=== PATIENT | male | born 1945 | race Caucasian/White ===

== ENCOUNTER 2022-11-19 08:55 | Outpatient (CLI) | payer MEDICARE, SELFPAY ==
--- NOTE | ~2022-11-19 | PE_ITS ---
EXAMINATION: PET skull to mid thigh DATE: 11/19/2022 11:04 INDICATION: Pulmonary nodule, history of prostate cancer TECHNIQUE: Blood glucose level was 81 mg/dL. 8.834 mCi of 18-fluorodeoxyglucose (18-FDG) was administ ered i.v. Low dose computed tomography (CT) images were acquired from the base of the brain to the pr oximal thighs for attenuation correction and anatomic localization. Positron emission tomography (PET ) images were acquired in the same distribution beginning 57 minutes after injection. The dose-length product (DLP) was 506.46 mGy-cm. COMPARISON: 05/13/2018 FINDINGS: Head/neck: FDG uptake in the oral cavity and orbits without suspicious CT correlate is likely physiol ogic. There is mild mucosal thickening of the maxillary sinuses. There is symmetric uptake in the thy roid gland. Chest: There is an approximately 10.3 x 6.2 cm thick-walled fluid collection at the posterolateral as pect of the right thoracic cavity. The thick-walled rim demonstrates mild FDG uptake. There is a smal l focus of gas in the fluid component. There are peripheral airspace opacities in the left lower lobe with mild FDG uptake. The heart size is normal. There are pericardial calcifications. There is mild right paratracheal lymphadenopathy without significant FDG uptake, likely reactive. Bilateral gynecom astia is noted. Abdomen/pelvis/proximal thighs: Physiologic FDG activity is present in the bowel and urinary tract. N o abnormal FDG uptake is identified. There is nodularity of the liver surface, consistent with cirrho sis. Stones are present in the nondistended gallbladder. The spleen, pancreas, and adrenal glands are normal. The kidneys are unremarkable. There is calcified atherosclerosis of the aorta and many of th e other arteries. No pathologically enlarged abdominal or pelvic lymph nodes are identified. No free intraperitoneal gas or evidence of bowel obstruction. Surgical clips are present in the prostate. Col onic diverticulosis is present without evidence of diverticulitis. Musculoskeletal: No abnormal FDG uptake is identified. There is an intramuscular lipoma of the left i nfraspinatus muscle. There is moderate to severe cervical and lumbar spondylosis and mild thoracic sp ondylosis. IMPRESSION: 1. Thick-walled fluid collection of the right thorax with mild peripheral FDG uptake and a focus of i nternal gas. Finding could reflect complex pleural effusion versus empyema. 2. Cirrhosis. 3. Left lung opacities with mild FDG uptake, likely pneumonia. Follow-up CT in three months is recomm ended. 4. Symmetric FDG uptake in the thyroid gland. Consider follow-up thyroid ultrasound. 5. Calcific pericarditis. Reviewed, dictated and finalized at location B. IMPRESSION: 1. Thick-walled fluid collection of the right thorax with mild peripheral FDG u ptake and a focus of internal gas. Finding could reflect complex pleural effusi on versus empyema. 2. Cirrhosis. 3. Left lung opacities with mild FDG uptake, likely pneumonia. Follow-up CT in three months is recommended. 4. Symmetric FDG uptake in the thyroid gland. Consider follow-up thyroid ultras ound. 5. Calcific pericarditis.
[2022-11-19 09:26] LABS: Glucose Point of Care 81 mg/dl (65-105)
== END 2022-11-19 08:56 | disposition home or self-care (01) ==
PROVIDERS: PCP Family Medicine
DX: R91.1 Solitary pulmonary nodule (principal); K74.60 Unspecified cirrhosis of liver; R91.8 Other nonspecific abnormal finding of lung field; I31.9 Disease of pericardium, unspecified
CPT/HCPCS: 78815; A9552

== ENCOUNTER 2024-08-07 08:43 | Emergency (ER) | payer MEDICARE, SELFPAY ==
[2024-08-07] VITALS (19 sets, daily range): BP systolic 93–184; BP diastolic 42–90; PULSE 114–142; RESP 12–50; TEMP 36.6–36.7; O2SAT 87–100
--- NOTE | ~2024-08-07 | CT_ITS ---
Non-contrast Head CT History: Unresponsive, hypotensive Technique: Axial non-contrast imaging of the brain was performed. Dose reduction technique was used on this scan by utilizing automated exposure control and iterative reconstruction technique. The dose -length product (DLP) was 605.33 mGy-cm. Findings: There is no evidence of intracranial hemorrhage, mass lesion, or acute infarct. Brain par enchyma appears normal. The ventricles and subarachnoid spaces are normal in size. The calvarium ap pears normal. The visualized paranasal sinuses and mastoid air cells are clear. Impression: No significant abnormality seen. Reviewed, dictated and finalized at location . Impression: No significant abnormality seen.
--- NOTE | ~2024-08-07 | XR_ITS ---
EXAMINATION: XR chest 1V portable DATE: 08/07/2024 09:37 INDICATION: Unresponsive. Hypoxia. Hypotensive. TECHNIQUE: frontal view of the chest was obtained. COMPARISON: PET/CT dated 11/19/2022 FINDINGS: Airspace opacities in the bilateral lower lung zones with pleural effusions and/or chronic pleural th ickening along the lateral aspects of the bilateral mid and lower lung zones. No pneumothorax. Perica rdial calcifications at the periphery of the normal sized heart. IMPRESSION: 1. Opacities in the bilateral mid and lower lungs likely due at least in part to chronic pleural thic kening/scarring as seen on the prior PET/CT although differential would include small bilateral pleur al effusions, atelectasis, pneumonia or some combination thereof. 2. Chronic calcific pericarditis. Reviewed, dictated and finalized at location A. IMPRESSION: 1. Opacities in the bilateral mid and lower lungs likely due at least in part t o chronic pleural thickening/scarring as seen on the prior PET/CT although diff erential would include small bilateral pleural effusions, atelectasis, pneumoni a or some combination thereof. 2. Chronic calcific pericarditis.
--- NOTE | ~2024-08-07 | XR_ITS ---
XR chest ET placement Ordering provider: Maia Costa MD History: 78 years Male with . post intubation . Comparison: August 07, 2024 FINDINGS: MEDIASTINUM: The cardiac silhouette is slightly enlarged. Endotracheal tube is seen with the tip abov e the velia by about 3 cm. Congestive marysol. LUNGS: No pneumothorax. Opacification in the left lung base is seen. Right pleural effusion is noted. Possible pleural calcification in the area of the left hemidiaphragm. Bilateral interstitial thicken ing. OTHER: No free air under the diaphragm. IMPRESSION: Cardiomegaly with cardiac decompensation and pulmonary edema. Left basilar atelectasis versus pneumonia. Right moderate pleural effusion. Reviewed, dictated and finalized at location A.
--- NOTE | 2024-08-07 08:48 | ED_ITS ---
HPI - General Adult General Chief complaint: Altered Mental Status Stated complaint: Ambulance Time Seen by Provider: 08/07/24 08:47 Source: family and EMS Mode of arrival: EMS History of Present Illness HPI narrative: patient is 78 years old white male came to the ED from home by ambulance because of unresponsiveness since last night about 10:00 p.m.. History of diabetes, hypertension, hyperlipidemia, congestive heart failure, atrial fibrillation, pleural effusion bilaterally,, recurrent aspiration pneumonia, history of trouble swallowing, walking, patient is not on anti- platelet or anticoagulant medication, His 's telling me that patient had a fall 2 weeks ago complaining of left hip pain, not sure if the patient had head injury at that time or not, did not go to the hospital. Been using a walker over the last 4 days. Patient was seen by his high tension tester 1 week ago for the pleural effusion. Related Data Allergies Allergy/AdvReac Type Severity Reaction Status Date / Time apixaban (From Eliquis) Allergy Severe Unknown Verified 08/07/24 10:00 meloxicam Allergy Unknown Unknown Verified 08/07/24 10:00 metoclopramide (From Reglan) Allergy Unknown Unknown Verified 08/07/24 10:00 simvastatin (From Zocor) Allergy Unknown Unknown Verified 08/07/24 10:00 Review of Systems 2 Review of Systems: ROS unobtainable: Yes unobtainable due to medical condition and unobtainable due to mental status Exam 2 Narrative: General appearance: Well-developed, well-nourished, unresponsive to painful stimulation, cyanotic face, 100% non-rebreather Skin: bluish discoloration of the face, cold skin, pale Head: Normocephalic, nontraumatic Eyes: Clear conjunctiva pupils narrow bilaterally ENT: Oropharynx normal, ears normal, nose normal Neck: Supple, nontender Chest and respiratory: Airway patent, slight labored breathing no accessory muscle use Heart: tachycardia, irregular Abdomen: Soft, nontender, no organomegaly, quiet bowel sounds Vascular: Normal peripheral pulses, normal capillary refill. Musculoskeletal: and responsive to painful stimulation Neurologic: unresponsive to painful stimulation Course Consultations Consultation #1: dr porter ICU at [facility] who accepted patient transfer Date: 08/07/24 Time: 11:40 Vital Signs Vital signs: Vital Signs Temperature 36.6 C 08/07/24 08:43 Pulse Rate 134 H 08/07/24 08:43 Respiratory Rate 30 H 08/07/24 08:43 Blood Pressure 99/67 L 08/07/24 08:43 Pulse Oximetry 96 08/07/24 08:43 Oxygen Delivery Non-Rebreather Mask 08/07/24 08:43 Oxygen Flow Rate 15 08/07/24 08:43 Temperature 36.6 C 08/07/24 08:43 Pulse Rate 133 H 08/07/24 09:02 Respiratory Rate 50 H 08/07/24 09:02 Blood Pressure 99/42 L 08/07/24 09:02 Pulse Oximetry 92 08/07/24 09:02 Oxygen Delivery Mechanical Ventilation 08/07/24 10:00 Oxygen Flow Rate 15 08/07/24 09:02 Procedures Intubation Intubation #1: Intubation Date: 08/07/24 Time out performed: Yes (10) sedative: Versed Mg Given: 4 paralytic: Succinylcholine Mg Given: 100 Laryngoscope: fiber optic video scope Assist Device Used: fiber optic device Tube Size (cm): 7.5 Method of Intubation: orotracheal Number of Attempts: 1 Tube Secured Depth (cm): 25 Tube Secured Location: lips Tube Placement Confirmation: visualized tube passing through cords Patient Tolerated Procedure: well Intubation Complications: none Medical Decision Making MDM Narrative Medical decision making narrative: Patient came to the ED and responsive since last night Vital signs on arrival showing blood pressure 99/67, pulse 134 atrial fibrillation with RVR, saturation 96% on 15 L non-rebreather. Physical examination showing a patient, unresponsive to painful stimulation, normal pupils bilaterally bluish discoloration of the face on 15 L non- rebreather with saturation 97% Differential diagnosis include intracranial bleed, CVA, sepsis, metabolic encephalopathy, dehydration, electrolyte imbalance, acute coronary syndrome Blood workup today includes septic protocol, showed ABG on 15 L showed EKG on arrival showed AFib with RVR at 120 beats per minute, right bundle branch block Diagnosis: Acute respiratory failure with hypoxia and hypercapnia Carbon dioxide narcosis AFib with RVR Her renal failure, acute versus chronic Elevated troponin, could be some demand ischemia Elevated liver enzymes Atelectasis versus pneumonia Transferred to [facility] discussed with the ICU DR PORTER Differential Diagnosis Differential Diagnosis: ABOVE Vital Signs Vital Signs: Vital Signs Temperature 36.6 C 08/07/24 08:43 Pulse Rate 134 H 08/07/24 08:43 Respiratory Rate 30 H 08/07/24 08:43 Blood Pressure 99/67 L 08/07/24 08:43 Pulse Oximetry 96 08/07/24 08:43 Oxygen Delivery Non-Rebreather Mask 08/07/24 08:43 Oxygen Flow Rate 15 08/07/24 08:43 Temperature 36.6 C 08/07/24 08:43 Pulse Rate 133 H 08/07/24 09:02 Respiratory Rate 50 H 08/07/24 09:02 Blood Pressure 99/42 L 08/07/24 09:02 Pulse Oximetry 92 08/07/24 09:02 Oxygen Delivery Mechanical Ventilation 08/07/24 10:00 Oxygen Flow Rate 15 08/07/24 09:02 Lab Data 08/07/24 09:20 08/07/24 09:20 Labs: Lab Results 08/07/24 08/07/24 08/07/24 Range/Units 08:53 09:20 09:21 WBC 11.7 H (4.8-10.8) K/mm3 RBC 3.93 L (4.70-6.10) M/mm3 Hgb 9.5 L (12.4-15.3) g/dL Hct 36.2 L (37.0-46.0) % MCV 92.1 (78.0-102.0) fL MCH 24.2 L (27.0-31.0) pg MCHC 26.2 L (32-36) g/dL RDW 16.7 H (11.6-14.4) % Plt Count 391 (150-420) K/mm3 MPV 9.9 (8.7-11.0) fl Immature Gran % (Auto) 0.9 H (0.0-0.0) % Neut % (Auto) 75.8 H (50.0-70.0) % Lymph % (Auto) 9.2 L (18.0-42.0) % Logan % (Auto) 11.9 H (2.0-11.0) % Eos % (Auto) 1.4 (1.0-6.0) % Baso % (Auto) 0.8 (0.0-1.0) % Lymph # (Auto) 1.08 L (1.10-4.50) K/mm3 Logan # (Auto) 1.39 H (0.10-0.90) K/mm3 Eos # (Auto) 0.16 (0.02-0.50) K/mm3 Baso # (Auto) 0.09 (0.00-0.10) K/mm3 Abs Immat Gran (auto) 0.11 H (0.00-0.00) K/mm3 Absolute Neuts (auto) 8.88 H (1.70-7.20) K/mm3 Absolute Nucleated RBC 0.02 H (0.00-0.00) K/mm3 Nucleated RBC % 0.2 H (0-0.0) % PT 13.0 H (9.50-12.1) Seconds INR 1.2 APTT 32.2 H (23.9-30.70) Sec Sodium 143 (136-145) mmol/L Potassium 5.3 H (3.5-5.1) mmol/L Chloride 104 (98-108) mmol/L Carbon Dioxide 36 H (21-32) mmol/L Anion Gap 3 L (4-12) mmol/L BUN 33 H (7-18) mg/dL Creatinine 2.51 H (0.70-1.30) mg/dL Estim Creat Clear Calc Not Reportable Estimated GFR 25 L (59 - ) Glucose 63 L (70-99) mg/dL Calculated Osmolality 301 H (285-295) mOsm/kg Lactic Acid 1.8 (0.4-2.0) mmol/L Calcium 8.6 (8.5-10.1) mg/dL Total Bilirubin 0.7 (0.00-1.00) mg/dL AST 128 H (15-37) U/L ALT 88 H (16-63) U/L Alkaline Phosphatase 222 H (46-116) U/L Troponin I 106.4 H* (0.00-60.4) ng/L C-Reactive Protein 4.0 H (0.0-0.9) mg/dL Total Protein 9.5 H (6.4-8.2) g/dL Albumin 3.5 (3.4-5.0) g/dL Urine Color Yellow (Yellow) Urine Appearance Clear (Clear) Urine pH 5.5 (5.0-8.0) Ur Specific [place] 1.025 H (1.010-1.020) Urine Protein Negative (Negative) Urine Glucose (UA) Negative (Negative) Urine Ketones Negative (Negative) Ur Blood (Man) Trace-intact H (Negative) Urine Nitrate Negative (Negative) Urine Bilirubin Negative (Negative) Urine Urobilinogen 0.2 (0.2-1.0) mg/dL Leukocyte Esterase Rfl Negative (Negative) BLAKE/UL Urine Opiates Screen Negative (Negative) Urine Methadone Screen Negative (Negative) Ur Barbiturates Screen Negative (Negative) Ur Phencyclidine Scrn Negative (Negative) Ur Amphetamine Screen Negative (Negative) U Benzodiazepines Scrn Negative (Negative) Urine Cocaine Screen Negative (Negative) U Cannabinoids Screen Negative (Negative) Ethyl Alcohol < 3 (0-6) mg/dL ABG Data ABG results: 08/07/24 09:40 Puncture Site Left radial ABG pH 6.91 L* ABG pCO2 196.0 H* ABG pO2 289.7 H ABG HCO3 38.4 H ABG O2 Saturation 99.5 H ABG Base Excess 1.8 Oxyhemoglobin 98.2 O2 Delivery Device Non-rebreather mask O2 Liters/Min 15.0 ECG Data EKG #1: Attestation: I personally reviewed and interpreted this ECG as follows: ECG completion date: 08/07/24 Interpretation: atrial fibrillation with RVR at 121 beats per minute, right bundle branch block, lateral myocardial infarction of indeterminate age, abnormal EKG Critical Care Time Critical Care Time Critical Care Time: Yes Total Critical Care Time: 30 Discharge Plan Discharge Clinical Impression: Unresponsive state, Renal insufficiency, Elevated liver enzymes, Elevated troponin, Acute respiratory failure with hypoxia and hypercapnia, CO2 narcosis Patient Disposition: Acute Care Hospital Condition: Guarded Prognosis Additional Instructions: TRANSFERRED TO [facility] Patient Language: Iranian Follow-up/Referrals: Ramone Degroot M.D. [Primary Care Provider] -
--- NOTE | 2024-08-07 08:48 | ECG_ITS ---
Test Date: 2024-08-07 08:54:53 Measurements Intervals [place] Rate: 121 P: 0 MI: 0 QRS: 122 QRSD: 161 T: -26 QT: 328 QTc: 467 Interpretive Statements ATRIAL FIBRILLATION WITH RAPID VENTRICULAR RESPONSE RIGHT BUNDLE BRANCH BLOCK [120+ ms QRS DURATION, UPRIGHT V1, 40+ ms S IN I/aVL/V4/V5/V6] LEFT POSTERIOR FASCICULAR BLOCK [QRS AXIS > 109, INFERIOR Q] LATERAL MYOCARDIAL INFARCTION , OF INDETERMINATE AGE [40+ ms Q WAVE AND/OR ST/T ABNORMALITY IN I/aVL/V5/V6] ST DEPRESSION, CONSIDER SUBENDOCARDIAL INJURY [0.1+ mV ST DEPRESSION] No previous ECG available for comparison Electronically Signed On 08-08-2024 16:21:18 CDT by Evans Christopher M.D.
[2024-08-07] MEDS: SODIUM CHLORIDE 0.9% IV 1,000 ML 999 ML IV CONT ×2 (08:50→09:00)
--- OUTSIDE RECORDS SUMMARY | 2024-08-07 09:08 | XMS_ITS | Encounter Summary ---
Author Organization [facility] Healthcare Address [address] [place] [address] Care Team Providers Care Metal Crafts Teacher Name Role Phone Ramone Degroot MD Primary Care Provider [phone] Lelia Velasquez RN Unavailable Un available Encounter Details Date Type Department Care Team (Late st Contact Info) Description 12/27/2019 Telephone [facility] [address] [facility] 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 Author <enter goal here> General Improving( 12:11 PM CDT) Yes Lelia Velasquez, RN Note: Walking for long periods of time Lifting cases in my store Being able to sleep with no foot pain documented as of this encounter Visit Diagnoses Not on filedocumented in this encounter Care Teams Metal Crafts Teacher Relationship Specialty Start Date End Date Ramone Degroot MD [address] [place] [address] PCP - General 09/22/17 Lelia Velasquez, RN Registered Nurse 09/22/17 documented as of this encounter
--- OUTSIDE RECORDS SUMMARY | 2024-08-07 09:08 | XMS_ITS | Encounter Summary ---
Author Organization [facility] Address [address] [place] [address] Care Team Providers Care County Coroner Name Role Phone Ramone Degroot MD Primary Care Provider Tejinder Cabrera MD Unavailable Unavail able Alon Holland MD Unavailable [phone] Alon De Leon MD Unavailable [phone] Jennifer Don NP Unavailable Unavailable Encounter Details Date Type Department Care Team (Late st Contact Info) Description 08/28/2021 Hospital Follow-up Call [facility] [address] [place] [address] Fanny Healy RN Social History Tobacco Use Types Packs/Day Years Used Date Smoking Tobacco: Former Cigarettes Q uit: 09/2018 Smokeless Tobacco: Never Alcohol Use Standard Drinks/Week Comments Not Currently 0 (1 standard drink = 0.6 oz pur e alcohol) Sex and Gender Information Value Date Recorded Sex Assigned at Male 06/22/2024 2:18 PM FULLERETTE Legal Sex Male 10:43 PM CDT Gender Identity Male 08/15/2021 1:58 PM CDT Sexual Orientation Not on file 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 No / Unsure 08/18/2021 2:04 PM CDT documented as of this encounter Functional Status * RETIRED Are you deaf or do you have serious difficulty hearing Answer Date of Assessment Author Status No 08/18/2021 6:45 PM CDT Activ e * RETIRED Are you blind or do you have serious difficulty seeing, even when wearing glasses? Answer Date of Assessment Author Status No 08/18/2021 6:45 PM CDT Activ e * Do you have serious difficulty walking or climbing stairs? Answer Date of Assessment Author Status No 08/18/2021 6:45 PM CDT Kevin Alicia RN Active * Do you have difficulty dressing or bathing? Answer Date of Assessment Author Status No 08/18/2021 6:45 PM CDT Kevin Alicia RN Active * Because of a physical, mental, or emotional condition, do you have difficulty doing errands alone such as visiting a doctor's office or shopping? Answer Date of Assessment Author Status No 08/18/2021 6:45 PM CDT Kevin Alicia RN Active documented as of this encounter Mental Status * Because of a physical, mental, or emotional condition, do you have serious difficulty concentrating, remembering, or making decisions? Answer Entry Date Author Status No 08/18/2021 6:45 PM SANDEET Kevin Alicia RN Active documented in this encounter Plan of Treatment Not on file documented as of this encounter Goals Goal Patient Goal Type Associated Problems Recent Progress Patient-Stated? Author Patient will return to prior living situation and remain independent in ADLs upon discharge from hospital General Marcelina Bahena RN documented as of this encounter Visit Diagnoses Not on filedocumented in this encounter Additional Health Concerns Infection Onset Date Last Indicated Resolved Time COVID-19 Rule Out 11/03/2021 11/03/2021 11/03/2021 5:18 PM CDT documented as of this encounter Care Teams County Coroner Relationship Specialty Start Date End Date [place] [address] [address] PCP - General FAMILY PRACTICE 06/30/18 [place] [address] [address] CARDIOVASCULAR DISEASE 06/30/18 10/19/23 Alon Holland MD [address] [place] [address] Neurology Psychiatry 07/07/18 10/19/23 Alon De Leon MD [address] [place], [place] [address] Covering Provider CARDIOTHORACIC SURGERY 08/18/21 Jennifer Don NP [address] [place] [address] Referring Physician Nurse Practitioner Family 11/28/21 documented as of this encounter
--- OUTSIDE RECORDS SUMMARY | 2024-08-07 09:08 | XMS_ITS | Encounter Summary ---
Author Organization [facility] Address [address] [place] [address] Care Team Providers Care Fruit Buying Grader Name Role Phone Ramone Degroot MD Primary Care Provider Tejinder Cabrera MD Unavailable Unavail able Alon Holland MD Unavailable [phone] Alon De Leon MD Unavailable [phone] Jennifer Don NP Unavailable Unavailable Encounter Details Date Type Department Care Team (Late st Contact Info) Description 09/17/2021 Pre-Procedure Call [facility] Pre/Post [address] [place] [address] Edy Suresh MD [address] [place] [address] Social History Tobacco Use Types Packs/Day Years Used Date Smoking Tobacco: Former Cigarettes Q uit: 09/2018 Smokeless Tobacco: Never Alcohol Use Standard Drinks/Week Comments Not Currently 0 (1 standard drink = 0.6 oz pur e alcohol) Sex and Gender Information Value Date Recorded Sex Assigned at Male 06/22/2024 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 Author Patient will return to prior living situation and remain independent in ADLs upon discharge from hospital General No Marcelina Davies RN documented as of this encounter Visit Diagnoses Not on filedocumented in this encounter Additional Health Concerns Infection Onset Date Last Indicated Resolved Time COVID-19 Rule Out 11/03/2021 11/03/2021 11/03/2021 5:18 PM CDT documented as of this encounter Care Teams Fruit Buying Grader Relationship Specialty Start Date End Date Ramone Degroot MD [address] [place] [place] [address] PCP - General FAMILY PRACTICE 06/30/18 Tejinder Cabrera MD [address] [place] [address] CARDIOVASCULAR DISEASE 06/30/18 10/19/23 Alon Holland MD [address] [place] [id number] Neurology Psychiatry 07/07/18 10/19/23 Alon De Leon MD [address] [place] [address] Covering Provider CARDIOTHORACIC SURGERY 08/18/21 Jennifer Don NP [address] [place] [address] Referring Physician Nurse Practitioner [facility] 11/28/21 documented as of this encounter
--- OUTSIDE RECORDS SUMMARY | 2024-08-07 09:08 | XMS_ITS | Clinical Summary ---
Author Organization [facility] Address [address] [place] [address] Care Team Providers Care Auto Service Writer Name Role Phone Ramone Degroot MD Primary Care Provider Alon De Leon MD Unavailable [phone] Jennifer Don NP Unavailable Unavailable Allergies Active Allergy Reactions Criticality Noted Date Comments Meloxicam Swelling Medium 04/01/2021 Leg edema Simvastatin Rash Low 06/30/2018 Medications B Complex Vitamins (VITAMIN B COMPLEX) Tab Take 1 tablet by mouth daily. 3 Active Coenzyme Q10 (COQ10 OR) Take 1 tablet by mouth daily. 3 Active tamsulosin 0.4 MG Cap Take 1 capsule (0.4 mg total) by mouth daily. Active glipiZIDE XL 5 MG 24 hr tablet Take 1 tablet (5 mg total) by mouth daily with breakfast. Do not break or crush tablet Active atorvastatin 80 MG tablet Take 0.5 tablets (40 mg total) by mouth 2 (two) times daily. Active MAGNESIUM OXIDE OR Take 1 tablet by mouth daily. 200mg Active Glucosamine 500 MG Cap Take 500 mg by mouth daily. Active DULoxetine 30 MG capsule Take 1 capsule (30 mg total) by mouth every evening. 0 Active levothyroxine (SYNTHROID) 88 MCG tablet Take 1 tablet (88 mcg total) by mouth every morning. Takes Synthroid (Brand name). Do not want to take generic Levothyroxine. 30 tablet 2 Active metoprolol tartrate (LOPRESSOR) 25 MG tablet TAKE 1 TABLET (25 MG TOTAL) BY MOUTH 2 (TWO) TIMES DAILY. 60 tablet 6 2 Active Additional Information Patient taking differently: 12.5 mg Oral Nightly, Reported on 05/05/2023 furosemide (LASIX) 40 MG tablet Take 1 tablet (40 mg total) by mouth daily. Active potassium chloride CR (KLOR-CON M) 20 MEQ tablet Take 1 tablet (20 mEq total) by mouth daily. Active probiotic (FLORAJEN3) Cap capsule Take 1 capsule by mouth daily. Active sertraline (ZOLOFT) 50 MG tablet Take 1 tablet (50 mg total) by mouth daily. Active omeprazole (PRILOSEC) 40 MG capsule Take 1 capsule (40 mg total) by mouth daily. Active calcium carbonate 1250 (500 Ca) MG chewable tablet Chew 1 tablet (1,250 mg total) by mouth daily. Active hydrOXYzine (VISTARIL) 25 MG capsule Take 1 capsule (25 mg total) by mouth nightly as needed for Itching. 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 12/13/2019 Insomnia secondary to chronic pain 12/13/2019 Lumbar radiculopathy 12/13/2019 DDD (degenerative disc disease), lumbar 11/29/19 Peripheral vascular disease 07/10/2018 Degenerative TFCC tear, left 07/03/2016 Osteoarthritis of first carpometacarpal joint, u nspecified 06/11/2016 Chip fracture of triquetrum of left wrist, seque la 06/01/2016 Left carpal tunnel syndrome 06/01/2016 Wrist pain, acute, left 05/27/2016 Hip pain 02/04/2016 Resolved Problems Problem Noted Date Diagnosed Date Resolved Date Gross hematuria 11/03/2021 11/04/2021 Claudication 01/22/2020 03/04/2020 Encounter for preventive health examination 02/04/2016 02/02/2020 Encounters Date Type Department Care Team Description 06/22/2024 2:18 PM METAL RIVETING MACHINE OPERATOR - 06/22/2024 11:59 PM [facility] Hospital Encounter [facility] [place] [address] Guillermo Ayala MD Nelson, Jaclyn E, LOCKSMITH HELPER Discharge Disposition: Home or Self Care (Routine Discharge) 06/22/2024 Travel from Last 3 Months Immunizations Name Administration Dates Next Due Fluzone High Dose - >Age 65 (Prefilled Syringe) 02/17/2019,02/08/2018,01/28/2017,2015,03/07/2015,03/05/2014 Influenza Adult (Generic) 02/29/2020,,02/08/2018,2016,03/12/2016,03/07/2015,03/05/2014,1 Pneumococcal (Pneumovax 23) 06/19/2020 Pneumococcal (Prevnar 13) 02/08/2018 Family History Medical History Relation Comments Heart Disease Brother Heart Disease Father Cancer Mother Relation Status Comments Brother Father Mother Social History Tobacco Use Types Packs/Day Years Used Date Smoking Tobacco: Former Cigarettes Q uit: 09/2018 Smokeless Tobacco: Never Alcohol Use Standard Drinks/Week Comments Not Currently 0 (1 standard drink = 0.6 oz pur e alcohol) Sex and Gender Information Value Date Recorded Sex Assigned at Male 06/22/2024 2:18 PM METAL RIVETING MACHINE OPERATOR Legal Sex Male 10:43 PM CDT Gender Identity Male 08/15/2021 1:58 PM CDT Sexual Orientation Not on file 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 Not on file Not on file Not on file Last Filed Vital Signs Vital Sign Reading Time Taken Comments Blood Pressure 125/74 10/19/2023 4:20 PM CDT Pulse 95 10/19/2023 3:14 PM CDT Temperature 36.7 C (98 F) 10/19/2023 3:14 PM CDT Respiratory Rate 18 10/19/2023 3:14 PM CDT Oxygen Saturation 100% 10/19/2023 4:30 PM CDT Inhaled Oxygen Concentration - - Weight 71.3 kg (157 lb 2 oz) 10/19/2023 3:14 PM CDT Height 172.7 cm (5' 8 ) 10/19/2023 3:14 PM CDT Body Mass Index 23.89 10/19/2023 3:14 PM CDT Plan of Treatment Health Maintenance Due Date Last Done Comments Kidney Health Evaluation 1945 Diabetes: Retinopathy Eye Exam 11/27/1963 DTaP, Tdap and Td Vaccines (1 - Tdap) 1964 Zoster Vaccines (1 of 2) 11/27/1995 Annual Medicare Wellness Visit 2010 RSV Immunization or 60+ Years (1 - 1-dose 75+ series) 2020 COVID-19 Vaccine ( season) 2024 07/16/2020, 06/25/2020 Influenza Adult (#1) 2024 02/29/2020, 02/17/2019, 02/17/2019, Additional history exists Hemoglobin A1C 10/03/2024 04/05/2024, 09/21, 06/02/2023, Additional history exists Lipid Panel 04/05/2025 04/05/2024, 12/23, 03/11/2022, Additional history exists Pneumococcal Vaccine: 65+ Years Completed 06/19/2020, 02/08/2018 Colorectal Cancer Screening Colonoscopy (10 Years) Discontinued 11/22/2020, 11/22/2020 Hepatitis C Completed 02/22/2024 Meningococcal B Vaccine Aged Out No l onger eligible based on patient's age to complete this topic Meningococcal Vaccine Aged Out No emilia drew eligible based on patient's age to complete this topic RSV Immunizations Under 20 Months Aged Out No longer eligible based on patient's age to complete this topic Goals Goal Patient Goal Type Associated Problems Recent Progress Patient-Stated? Author Patient will return to prior living situation and remain independent in ADLs upon discharge from hospital General No Marcelina Davies, RN Safety Patient/family will have appropriate support at home upon discharge General No Janine Weaver LSW Medical Devices Implanted Type Area Inspector Material Disposition Device Identifier Shelf Expiration Date Model / Serial / Lot Pv [employer] Rt. Common Iliac- 0 Implanted:Qty: 1 on 01/22/2020 by Tejinder Cabrera MD Stent Right: Iliac [employer] 01/23/2022 [id number] / / [id number] [employer] Lens Implanted:Qty: 1 on 04/07/2023 by Desirae Moncada MD at [facility] Right: Eye [id number] 01/12/2026 [id number] / [id number] / [employer] Simplicity Delivery System Implanted:Qty: 1 on 05/12/2023 by Desirae Moncada MD at [facility] Left: Eye [employer] [id number] 02/20/2026 DCB00 / [id number] / Procedures Procedure Name Priority Date/Time Associated Diagnosis Comments XR SPEECH SWALLOW SFL ONLY Routine 06/22/2024 3:19 PM METAL RIVETING MACHINE OPERATOR Esophageal dysphagia CT CHEST WO CON Routine 06/22/2024 2:34 PM METAL RIVETING MACHINE OPERATOR Pleural effusion LIPID PANEL Routine 04/05/2024 3:59 PM METAL RIVETING MACHINE OPERATOR Type II diabetes mellitus ([facility]/HCC HHS/HCC) Adult hypothyroidism Hyperlipidemia, mixed HEMOGLOBIN, GLYCOSYLATED Routine 04/05/2024 3:59 PM METAL RIVETING MACHINE OPERATOR Type II diabetes mellitus (CMS/HCC HHS/HCC) Adult hypothyroidism Hyperlipidemia, mixed HEPATITIS C ANTIBODY Routine 02/22/2024 9:32 AM CDT Rash and other nonspecific skin eruption COLONOSCOPY 11/22/2020 8:38 AM CDT from Last 3 Months or Most Recently Relevant to Health Maintenance Results * SFL - XR SPEECH SWALLOW (06/22/2024 3:19 PM METAL RIVETING MACHINE OPERATOR) Anatomical Region Laterality Modality NA Radiographic Cassandra ging, Radiographic Imaging 06/22/2024 4:12 PM METAL RIVETING MACHINE OPERATOR Impressions 06/22/2024 4:20 PM METAL RIVETING MACHINE OPERATOR IMPRESSION: Swallowing dysfunction as described. Please reference the speech pathologist report for complete details. Ordered By: GUILLERMO AYALA Interpreted By: Derrick Luu MD, 06/22/2024 4:12 PM Narrative 06/22/2024 4:20 PM METAL RIVETING MACHINE OPERATOR [place] [id number] [place] [address] Examination: Video esophagogram. Exam time: 1450 hours. Clinical history: Dysphagia. Sensation of food sticking. Comparison: None. Technique: Fluoroscopic monitoring at the direction of the speech pathologist. 4.6 minutes of fluoroscopy time was used. 15 cine series were captured for review. Findings: The patient was offered liquids, puree, MM5 and solids sequentially at the direction of the speech pathologist. Premature spillage to the vallecula was observed with puree, MM5 and solids with some delay in triggering the swallow. Once triggered, the swallow proceeded rapidly with these consistencies. Flash penetration with liquids was observed. No nasopharyngeal reflux or aspiration was observed. There were mild vallecular residuals which persisted to some degree following repeat swallows and liquid wash. For the final trial, the patient ingested a barium tablet which lodged in the vallecula and remained in place despite various maneuvers. Hooking of the tip of the epiglottis is noted, presumably anatomic variant, and appears to be the cause of this issue. Procedure Note Derrick Luu MD - 06/22/2024 [place] [address] [place] [address] Examination: Video esophagogram. Exam time: 1450 hours. Clinical history: Dysphagia. Sensation of food sticking. Comparison: None. Technique: Fluoroscopic monitoring at the direction of the speechpathologist. 4.6 minutes of fluoroscopy time was used. 15 cine series werecaptured for review. Findings: The patient was offered liquids, puree, MM5 and solidssequentially at the direction of the speech pathologist. Prematurespillage to the vallecula was observed with puree, MM5 and solids withsome delay in triggering the swallow. Once triggered, the swallowproceeded rapidly with these consistencies. Flash penetration with liquidswas observed. No nasopharyngeal reflux or aspiration was observed. Therewere mild vallecular residuals which persisted to some degree followingrepeat swallows and liquid wash. For the final trial, the patient ingesteda barium tablet which lodged in the vallecula and remained in placedespite various maneuvers. Hooking of the tip of the epiglottis is noted,presumably anatomic variant, and appears to be the cause of this issue. IMPRESSION: Swallowing dysfunction as described. Please reference the speechpathologist report for complete details. Ordered By: GUILLERMO M ECKERLE Interpreted By: Derrick Luu MD, 06/22/2024 4:12 PM us Guillermo Ayala MD FLUOROSCOPY Final Result * CT CHEST WO CON (06/22/2024 2:34 PM METAL RIVETING MACHINE OPERATOR) Anatomical Region Laterality Modality Chest Computed Tomogra phy 06/27/2024 3:37 PM METAL RIVETING MACHINE OPERATOR Impressions 06/27/2024 4:01 PM METAL RIVETING MACHINE OPERATOR IMPRESSION: 1. No acute intrathoracic process identified. 2. Coronary artery disease. 3. Stable extent of loculated right pleural effusion. 4. Additional chronic/nonurgent findings as described. Ordered By: GUILLERMO AYALA Interpreted By: Derrick Luu MD, 06/27/2024 3:37 PM Narrative 06/27/2024 4:01 PM METAL RIVETING MACHINE OPERATOR [place] [id number] [place] [address] Examination: CT of the chest without contrast. Exam time: 1437 hours. Clinical history: Follow-up of pleural effusion. Comparison: 02/23/2023. Technique: Spiral scanning was performed through the chest without contrast. Sagittal and coronal reconstructions were performed from the data set. A dose lowering technique was used for this procedure, which may include, but is not limited to, dose reduction techniques, automated exposure control, the use of iterative reconstruction and ALARA/Image Gently techniques. Findings: Diffuse pericardial calcification, calcific coronary artery disease, aortic valve calcification and atherosclerotic calcification of the aorta and arch vessels again evident. The heart and great vessels are otherwise unremarkable for the noncontrast technique. Calcified left hilar lymph nodes are again evident, compatible with old granulomatous disease. No hilar or mediastinal adenopathy is identified. There is a minimal amount of retained secretions in the trachea. No other endobronchial abnormality is identified. Calcified pulmonary granulomas are again evident. Stable sub-6 mm pleural-based noncalcified nodules posteriorly in the right upper lobe are considered benign based on current Fleischner Society guidelines, presumably granulomas. Pleural/parenchymal scarring on the left appears similar to previous. There is no left pleural effusion. Loculated right pleural effusion with associated rind-like pleural thickening and adjacent scarring or atelectasis is also similar to previous. There is no new dominant mass, suspicious nodule or focal airspace opacity. The chest wall structures are unchanged. Intramuscular lipoma within the left infraspinatus and bilateral gynecomastia again evident. The included sections through the upper abdomen show no acute process. Lobular hepatic contour, suggesting cirrhosis, and colonic diverticulosis again evident. Procedure Note Derrick Luu MD - 06/27/2024 [facility] [address] [place] [address] Examination: CT of the chest without contrast. Exam time: 1437 hours. Clinical history: Follow-up of pleural effusion. Comparison: 02/23/2023. Technique: Spiral scanning was performed through the chest withoutcontrast. Sagittal and coronal reconstructions were performed from thedata set. A dose lowering technique was used for this procedure, whichmay include, but is not limited to, dose reduction techniques, automatedexposure control, the use of iterative reconstruction and ALARA/ImageGently techniques. Findings: Diffuse pericardial calcification, calcific coronary arterydisease, aortic valve calcification and atherosclerotic calcification ofthe aorta and arch vessels again evident. The heart and great vessels areotherwise unremarkable for the noncontrast technique. Calcified left hilarlymph nodes are again evident, compatible with old granulomatous disease.No hilar or mediastinal adenopathy is identified. There is a minimalamount of retained secretions in the trachea. No other endobronchialabnormality is identified. Calcified pulmonary granulomas are againevident. Stable sub-6 mm pleural-based noncalcified nodules posteriorly inthe right upper lobe are considered benign based on current [facility] guidelines, presumably granulomas. Pleural/parenchymal scarring onthe left appears similar to previous. There is no left pleural effusion.Loculated right pleural effusion with associated rind-like pleuralthickening and adjacent scarring or atelectasis is also similar toprevious. There is no new dominant mass, suspicious nodule or focalairspace opacity. The chest wall structures are unchanged. Intramuscularlipoma within the left infraspinatus and bilateral gynecomastia againevident. The included sections through the upper abdomen show no acuteprocess. Lobular hepatic contour, suggesting cirrhosis, and colonicdiverticulosis again evident. IMPRESSION: 1. No acute intrathoracic process identified. 2. Coronary artery disease. 3. Stable extent of loculated right pleural effusion. 4. Additional chronic/nonurgent findings as described. Ordered By: GUILLERMO AYALA Interpreted By: Derrick Luu MD, 06/27/2024 3:37 PM us Guillermo Ayala MD CT Final Result * (ABNORMAL) HEMOGLOBIN, GLYCOSYLATED (04/05/2024 3:59 PM METAL RIVETING MACHINE OPERATOR) HGB A1C 6.2(H) <5.7 % 04/06/2024 2:31 PM METAL RIVETING MACHINE OPERATOR [facility] ESTIMATED AVG GLUCOSE 131(H) 74 - 114 MG/DL 04/06/2024 2:31 PM METAL RIVETING MACHINE OPERATOR [facility] 04/05/2024 3:59 PM METAL RIVETING MACHINE OPERATOR us Ramone Degroot MD LABORATORY Final Resul t [facility] [address] [place] [address], [id number] * LIPID PANEL (04/05/2024 3:59 PM METAL RIVETING MACHINE OPERATOR) CHOLESTEROL 111 MG/DL 04/06/2024 12:18 PM METAL RIVETING MACHINE OPERATOR [facility] Comment:DESIRABLE: <200 TRIGLYCERIDES 87 MG/DL 04/06/2024 12:18 PM METAL RIVETING MACHINE OPERATOR [facility] Comment:<150 NORMAL HDL 42 >39 MG/DL 04/06/2024 12:18 PM METAL RIVETING MACHINE OPERATOR [facility] LDL-C 52 MG/DL 04/06/2024 12:18 PM METAL RIVETING MACHINE OPERATOR [facility] Comment:<100 OPTIMAL VLDL CALCULATION 17 MG/DL 04/06/20 12:18 PM METAL RIVETING MACHINE OPERATOR [facility] Comment:REFERENCE RANGE NOT ESTABLISHED CHOL/HDL RATIO 2.6 04/06/2024 12:18 PM METAL RIVETING MACHINE OPERATOR [facility] Comment:REFERENCE RANGE NOT ESTABLISHED LDL/HDL 1.2 04/06/2024 12:18 PM METAL RIVETING MACHINE OPERATOR [facility] Comment:REFERENCE RANGE NOT ESTABLISHED NON HDL CHOLESTEROL 69 MG/DL 04/06/2024 12:18 PM METAL RIVETING MACHINE OPERATOR [facility] Comment:REFERENCE RANGE NOT ESTABLISHED 04/05/2024 3:59 PM METAL RIVETING MACHINE OPERATOR us Ramone Degroot MD LABORATORY Final Resul t Performing Organization Address [facility] Co de Phone Number [facility] [address] [place] [address], [phone] * HEPATITIS C ANTIBODY (02/22/2024 9:32 AM CDT) HEPATITIS C AB NON-REACTI VE NON-REACT LUZMA 02/22/2024 7:23 PM CDT [facility] Comment: ANTIBODIES TO HCV NOT DETECTED. DOES NOT EXCLUDE THE POSSIBILITY OF EXPOSURE TO HCV. 02/22/2024 9:32 AM CDT us Joselin Matt DO LABORATORY Final Result Performing Organization Address [facility] de Phone Number [facility] [address] [place] [address], [phone] * COLONOSCOPY (11/22/2020 8:38 AM CDT) Dwight Manning MD GI PROCEDURE ORDERABLES Final Result from Last 3 Months or Most Recently Relevant to Health Maintenance Insurance MEDICARE MEDICARE Advance Directives * Full Code (Latest Code Status on File) Date Activated Date Inactivated Comments 11/04/2021 11:50 AM 11/04/2021 4:40 PM * Full Code Date Activated Date Inactivated Comments 11/03/2021 11:00 AM 11/04/2021 11:50 AM * Full Code Date Activated Date Inactivated Comments 09/25/2021 1:40 PM 09/25/2021 6:53 PM * Full Code Date Activated Date Inactivated Comments 08/18/2021 4:55 PM 08/26/2021 8:37 PM * Full Code Date Activated Date Inactivated Comments 01/22/2020 12:32 PM 01/22/2020 7:17 PM Care Teams Auto Service Writer Relationship Specialty Start Date End Date Ramone Degroot MD [address] [place] [id number] PCP - General FAMILY PRACTICE 06/30/18 Alon De Leon MD [address] [place] [address] Covering Provider CARDIOTHORACIC SURGERY 08/18/21 Jennifer Don NP [address] [place] [address] Referring Physician Nurse Practitioner [facility] 11/28/21
--- OUTSIDE RECORDS SUMMARY | 2024-08-07 09:08 | XMS_ITS | Referral Summary ---
Author Organization [facility] Address [address] [place] [address] Care Team Providers Care Wrapping Clerk Name Role Phone Ramone Degroot MD Primary Care Provider [phone] Lelia Velasquez RN Unavailable Un available Encounters Date Type Department Care Team Description 07/27/2024 1:15 PM MANAGER SPA Office Visit [facility] Pulmonary at [address] [phone] Guillermo Christine MD Esophageal dysphagia (Primary Dx); Centrilobular emphysema (HCC); Pleural effusion; Dyspnea on exertion; Restrictive ventilatory defect; Chronic respiratory failure with hypoxia and hypercapnia (HCC) 06/27/2024 Telephone [facility] Pulmonary at [address] [phone] Shayy Early MA Testing for upcoming appointment 06/22/2024 2:35 PM MANAGER SPA Ancillary Procedure [facility] Outside Films 06/22/2024 2:45 PM MANAGER SPA Ancillary Procedure [facility] Outside Films 05/30/2024 Telephone [facility] Pulmonary at [address] [phone] Taina Lewis LPN 05/30/2024 Orders Only [facility] Pulmonary at [address] [phone] Taina Lewis LPN Esophageal dysphagia (Primary Dx) 05/26/2024 Telephone [facility] Pulmonary at [address] [phone] Manan Lewisna ConnieMELONY nath 06/06/24 appt, [place] and [place] Esophagram from Last 3 Months Allergies Active Allergy Reactions Criticality Noted Date Comments Meloxicam Edema Medium 04/01/2021 Leg edema Simvastatin Rash Medium 06/30/2018 Medications aspirin 81 mg tablet Take 1 tablet (81 mg total) by mouth daily Active B complex 12-kfobf-T-biot- zinc [id number] ls-ll-dqa-mg tablet Take by mouth. Activ e levothyroxine (SYNTHROID, LEVOTHROID) 75 mcg tablet Take 1 tablet (75 mcg total) by mouth assistant facility manager before breakfast Active glipiZIDE XL (GLUCOTROL XL) 2.5 mg 24 hr tabletIndication s:type 2 diabetes mellitus Take 1 tablet (2.5 mg total) by mouth daily Active enalapril (VASOTEC) 20 mg tablet Take 1 tablet (20 mg total) by mouth daily Active atorvastatin (LIPITOR) 80 mg tablet Take 1 tablet (80 mg total) by mouth daily Active hydroCHLOROthiaz berenice (HYDRODIURIL) 25 mg tablet Take 1 tablet (25 mg total) by mouth daily Active DULoxetine DR (CYMBALTA) 30 mg capsule Take 1 capsule (30 mg total) by mouth nightly 0 Active furosemide (LASIX) 40 mg tablet Take 1 tablet (40 mg total) by mouth daily Active hydrOXYzine (VISTARIL) 25 mg capsule Take 1 capsule (25 mg total) by mouth nightly as needed Active L. acidophilus/Bifi d. animalis 32 billion cell capsule Take 1 capsule by mouth daily Active metoprolol tartrate (LOPRESSOR) 25 mg immediate release tablet Take 0.5 tablets (12.5 mg total) by mouth daily 2 Active potassium chloride ER 20 mEq CR tablet Take 1 tablet (20 mEq total) by mouth daily Active sertraline (ZOLOFT) 50 mg tablet Take 1 tablet (50 mg total) by mouth daily Active tamsulosin (FLOMAX) 0.4 mg extended release capsule Take 1 capsule (0.4 mg total) by mouth daily Active predniSONE (DELTASONE) 5 mg tablet Take by mouth Active albuterol HFA (PROVENTIL HFA,VENTOLIN HFA,PROAIR HFA) 90 mcg/actuation inhaler Inhale 2 puffs every 6 (six) hours as needed for wheezing Active budesonide (PULMICORT) 0.5 mg/2 mL nebulizer solution Take 2 mL (0.5 mg total) by nebulization daily Rinse mouth with water after use. Do not swallow. Active revefenacin (Yupelri) 175 mcg/3 mL solution for nebulization Inhale 175 mcg daily Active coenzyme K93-rebbgqr E 100-5 mg-unit capsule Take by mouth Active glucosamine-fiona droitin 500-400 mg capsule Take 1 capsule by mouth 3 (three) times a day Active folic acid (FOLVITE) 1 mg tablet Take 1 tablet (1 mg total) by mouth daily Active iron bisgly,ps-FA-B-C #12-succ 65 mg-65 mg -1,000 mcg (24) tablet Take by mouth Active Active Problems Patient Care Coordination No te Formatting of this note migh t be different from the original. Referring provider: Dr. Guillermo Christine Mr. Orlando Jesus is a 78-year-old with a pleural effusion. Patient has a history of chronic respiratory failure and is on supplemental oxygen. He reports symptoms of dyspnea. He reports a chronic pleural effusion dating back to 2020. He underwent a left thoracentesis with unclear fluid study results. He eventually was referred to a thoracic surgery and underwent a thoracoscopic decortication on the left in July of 2021. He was discharged home on supplemental oxygen. Later he was noted to have a right pleural effusion. He states they attempted a thoracentesis but this was unsuccessful. He had never been offered any other therapy. He remained on supplemental oxygen since that time and reports persistent dyspnea. On 06/22/2024 the patient underwent chest CT without contrast which showed which showed diffuse pericardial calcification, calcific coronary artery disease, aortic valve calcification and atherosclerotic calcification of the aorta and arch vessel. There was a stable sub 6 mm pleural-based noncalcified nodule in the right upper lobe which is considered to be benign. There is no left pleural effusion. There is a loculated right pleural effusion with associated rind-like pleural thickening and adjacent scarring or atelectasis. This is similar to the previous CT. There is a lobular hepatic contour, suggesting cirrhosis and colonic diverticulosis. Patient has a history of prostate cancer status post radiation. He is a former smoker who quit in 2019. Patient presents today for further surgical evaluation. Problem Noted Date Diagnosed Date FDC current use of anticoagulant 0 Lumbar radiculopathy 12/13/2019 Chronic bilateral low back pain with bilateral s ciatica 12/13/2019 Insomnia secondary to chronic pain 12/13/2019 Lumbar spinal inwtmyuz-A5-3 canal severe 019 DDD (degenerative disc disease), lumbar-L4-5 vac uum disc 11/28/2018 Lumbar stenosis with neurogenic claudication 01/2018 Social History Tobacco Use Types Packs/Day Years Used Date Smoking Tobacco: Former Cigarettes 0.5 54 1 966 - 2019 Smokeless Tobacco: Never Tobacco Cessation:Counseling Given: Not Answered Alcohol Use Standard Drinks/Week Comments Yes 0 (1 standard drink = 0.6 oz pur e alcohol) a couple times per month Sex and Gender Information Value Date Recorded Sex Assigned at Not on file Legal Sex Male 8:56 AM MANAGER SPA Gender Identity Not on file Sexual Orientation Not on file Last Filed Vital Signs Vital Sign Reading Time Taken Comments Blood Pressure 108/68 07/27/2024 1:12 PM MANAGER SPA Pulse 93 07/27/2024 1:12 PM MANAGER SPA Temperature 36.5 C (97.7 F) 07/27/2024 1:12 PM MANAGER SPA Respiratory Rate 18 04/24/2024 1:49 PM MANAGER SPA Oxygen Saturation 93% 07/27/2024 1:1 2 PM MANAGER SPA 2 liters of oxygen Inhaled Oxygen Concentration - - Weight 68 kg (150 lb) 07/27/2024 1:12 PM MANAGER SPA Height 175.3 cm (5' 9 ) 07/27/2024 1:12 PM MANAGER SPA Body Mass Index 22.15 07/27/2024 1:12 PM MANAGER SPA Plan of Treatment Not on file Goals Goal Patient Goal Type Associated Problems Recent Progress Patient-Stated? Author <enter goal here> General Improving( 12:11 PM CDT) Yes Lelia Velasquez, MARICARMEN Note: Walking for long periods of time Lifting cases in my store Being able to sleep with no foot pain Procedures Procedure Name Priority Date/Time Associated Diagnosis Comments XR TRANSFER OF OUTSIDE FILMS Routine 06/22/2024 2:[address] BODY OUTSIDE REFERENCE Routine 06/22/2024 2:35 PM MANAGER SPA from Last 3 Months Results * XR Outside Reference (06/22/2024 2:45 PM MANAGER SPA) Narrative [facility] - 07/14/2024 10:35 AM MANAGER SPA This order has been auto-finalized and does not contain a result. us Not In File Miscellaneous IMG XR PROCEDURES Kristy l Result Performing Organization Address [facility] de Phone Number [facility] * CT Body Outside Reference (06/22/2024 2:35 PM MANAGER SPA) Narrative [facility] - 07/14/2024 10:37 AM MANAGER SPA This order has been auto-finalized and does not contain a result. us Not In File Miscellaneous IMG CT PROCEDURES Kristy l Result Performing Organization Address [facility] de Phone Number [facility] from Last 3 Months Insurance MEDICARE [facility] MEDICARE [employer] MEDICARE SUPPLEMENT MEDICARE [facility] MEDICARE SUPPLEMENT Care Teams Wrapping Clerk Relationship Specialty Start Date End Date Ramone Degroot MD [address] [place] [address] PCP - General 09/22/17 Lelia Velasquez, RN Registered Nurse 09/22/17
--- OUTSIDE RECORDS SUMMARY | 2024-08-07 09:08 | XMS_ITS | Clinical Summary ---
Author Organization [facility] Address [address] [place] [address] Care Team Providers Care Care Navigator Name Role Phone Ramone Degroot MD Primary Care Provider [phone] Lelia Velasquez RN Unavailable Un available Allergies Active Allergy Reactions Criticality Noted Date Comments Meloxicam Edema Medium 04/01/2021 Leg edema Simvastatin Rash Medium 06/30/2018 Medications aspirin 81 mg tablet Take 1 tablet (81 mg total) by mouth daily Active B complex 30-liwkp-X-biot- zinc [id number] yj-be-nsn-mg tablet Take by mouth. Activ e levothyroxine (SYNTHROID, LEVOTHROID) 75 mcg tablet Take 1 tablet (75 mcg total) by mouth cargo and container inspector before breakfast Active glipiZIDE XL (GLUCOTROL XL) [...] nebulization Inhale 175 mcg daily Active coenzyme K28-khazipx E 100-5 mg-unit capsule Take by mouth Active glucosamine-fiona droitin 500-400 mg capsule Take 1 capsule by mouth 3 (three) times a day Active folic acid (FOLVITE) 1 mg tablet Take 1 tablet (1 mg total) by mouth daily 4 Active iron bisgly,ps-FA-B-C #12-succ 65 mg-65 mg [...] surgical evaluation. Problem Noted Date Diagnosed Date buttermaker helper current use of anticoagulant 0 Lumbar radiculopathy 12/13/2019 Chronic bilateral low back pain with bilateral s ciatica 12/13/2019 Insomnia secondary to chronic pain 12/13/2019 Lumbar spinal rdoqhile-G8-3 canal severe 019 DDD (degenerative disc disease), lumbar-L4-5 vac uum disc 11/28/2018 Lumbar stenosis with neurogenic claudication 01/2018 Encounters Date Type Department Care Team Description 07/27/2024 1:15 PM FINANCIAL ADMINISTRATION OFFICER Office Visit [facility] Pulmonary at [address] [place] [phone] Guillermo Christine MD Esophageal dysphagia (Primary Dx); Centrilobular emphysema (HCC); Pleural effusion; Dyspnea on exertion; Restrictive ventilatory defect; Chronic respiratory failure with hypoxia and hypercapnia (HCC) 06/27/2024 Telephone [facility] Pulmonary at [address] [place] [phone] Shayy Early MA Testing for upcoming appointment 06/22/2024 2:45 PM FINANCIAL ADMINISTRATION OFFICER Ancillary Procedure [facility] Outside Films 06/22/2024 2:35 PM FINANCIAL ADMINISTRATION OFFICER Ancillary Procedure [facility] Outside Films 05/30/2024 Telephone [facility] Pulmonary at [address] [place] [phone] Taina Lewis LPN 05/30/2024 Orders Only [facility] Pulmonary at [address] [place] [phone] Taina Lewis LPN Esophageal dysphagia (Primary Dx) 05/26/2024 Telephone [facility] Pulmonary at [address] [place] [phone] Taina Lewis LPN 06/06/24 appt, CT and [place] Esophagram from Last 3 Months Surgical History Surgery Date Site/Laterality Comments US GUIDED THORACENTESIS 09/25/2022 N/A US GUIDED THORACENTESIS 08/01/2021 N/A US GUIDED THORACENTESIS 07/08/2021 N/A Medical History Medical History Date Comments Cancer (HCC) 2009 prostate cancer; external beam radiation - 43 treatments Arthritis Type 2 diabetes mellitus (HCC) o n oral medication to prevent diabetes II per PCP Wears glasses Wears dentures Hypertension Sexual dysfunction Pain feet, back Sciatica Neuropathy Low back pain Chronic pain disorder Thyroid disease Family History Medical History Relation Name Comments Heart disease Father Stroke Father Cancer Mother Diabetes Mother Relation Name Status Comments Father Mother Social History Tobacco Use Types Packs/Day Years Used Date Smoking Tobacco: Former Cigarettes 0.5 54 1 966 - 2020 Smokeless Tobacco: Never Tobacco Cessation:Counseling Given: Not Answered Alcohol Use Standard Drinks/Week Comments Yes 0 (1 standard drink = 0.6 oz pur e alcohol) a couple times per month Sex and Gender Information Value Date Recorded Sex Assigned at Not on file Legal Sex Male 8:56 AM FINANCIAL ADMINISTRATION OFFICER Gender Identity Not on file Sexual Orientation Not on file Obstetrics History Last Filed Vital Signs Vital Sign Reading Time Taken Comments Blood Pressure 108/68 07/27/2024 1:12 PM FINANCIAL ADMINISTRATION OFFICER Pulse 93 07/27/2024 1:12 PM FINANCIAL ADMINISTRATION OFFICER Temperature 36.5 C (97.7 F) 07/27/2024 1:12 PM FINANCIAL ADMINISTRATION OFFICER Respiratory Rate 18 04/24/2024 1:49 PM FINANCIAL ADMINISTRATION OFFICER Oxygen Saturation 93% 07/27/2024 1:1 2 PM FINANCIAL ADMINISTRATION OFFICER 2 liters of oxygen Inhaled Oxygen Concentration - - Weight 68 kg (150 lb) 07/27/2024 1:12 PM FINANCIAL ADMINISTRATION OFFICER Height 175.3 cm (5' 9 ) 07/27/2024 1:12 PM FINANCIAL ADMINISTRATION OFFICER Body Mass Index 22.15 07/27/2024 1:12 PM FINANCIAL ADMINISTRATION OFFICER Plan of Treatment Health Maintenance Due Date Last Done Comments Fall Risk Assessment 1945 Hepatitis C Screening 1945 DTaP/Tdap/Td Vaccine (1 - Tdap) 1956 Hepatitis B Screening 11/27/1963 Lung Cancer Screening 11/27/1995 Zoster Vaccine (1 of 2) 11/27/1995 Well Visit 65+ 2010 Depression Screening 09/22/2018 09/22/2017, 09/23/19 18 Influenza Vaccine (#1) 2024 0, 02/17/2019, 02/08/2018, Additional history exists Pneumococcal vaccine 65+ Completed 06/19/2020, 01/22 Abdominal Aortic Aneurysm (A AA) Screen Completed 09/17/2022, 11/04/2021, 09/09/2018 Goals Goal Patient Goal Type Associated Problems Recent Progress Patient-Stated? Author <enter goal here> General Improving( 12:11 PM CDT) Yes Lelia Velasquez, RN Note: Walking for long periods of time Lifting cases in my store Being able to sleep with no foot pain Procedures Procedure Name Priority Date/Time Associated Diagnosis Comments XR TRANSFER OF OUTSIDE FILMS Routine 06/22/2024 2:45 PM FINANCIAL ADMINISTRATION OFFICER CT BODY OUTSIDE REFERENCE Routine 06/22/2024 2:35 PM FINANCIAL ADMINISTRATION OFFICER from Last 3 Months Results * XR Outside Reference (06/22/2024 2:45 PM FINANCIAL ADMINISTRATION OFFICER) Narrative [facility] - 07/14/2024 10:35 AM FINANCIAL ADMINISTRATION OFFICER This order has been auto-finalized and does not contain a result. us Not In File Miscellaneous IMG XR PROCEDURES Kristy l Result [facility] * CT Body Outside Reference (06/22/2024 2:35 PM FINANCIAL ADMINISTRATION OFFICER) Narrative [facility] - 07/14/2024 10:37 AM FINANCIAL ADMINISTRATION OFFICER This order has been auto-finalized and does not contain a result. us Not In File Miscellaneous IMG CT PROCEDURES Kristy l Result [facility] from Last 3 Months Insurance MEDICARE [facility] MEDICARE [facility] MEDICARE SUPPLEMENT MEDICARE [facility] MEDICARE SUPPLEMENT Care Teams Care Navigator Relationship Specialty Start Date End Date Ramone Degroot MD [address] [place] [address] PCP - General 09/22/17 Lelia Velasquez, RN Registered Nurse 09/22/17
--- OUTSIDE RECORDS SUMMARY | 2024-08-07 09:08 | XMS_ITS | Encounter Summary ---
Author Organization [facility] Address [address] [place] [address] Care Team Providers Care Prevocational/Rehabilitation Counselor Name Role Phone Ramone Degroot MD Primary Care Provider Tejinder Cabrera MD Unavailable Unavail able Alon Holland MD Unavailable [phone] Alon De Leon MD Unavailable [phone] Jennifer Don NP Unavailable Unavailable Encounter Details Date Type Department Care Team (Late st Contact Info) Description 10/29/2018 Abstract SFL CONVERSION [address] [place] [address] , Generic Conversion, Social History Tobacco Use Types Packs/Day Years Used Date Smoking Tobacco: Every Day Smokeless Tobacco: Never Alcohol Use Standard Drinks/Week Comments Yes 0 (1 standard drink = 0.6 oz pur e alcohol) rarely Sex and Gender Information Value Date Recorded Sex Assigned at Male 06/22/2024 2:18 PM POST ANESTHESIA NURSE Legal Sex Male 10:43 PM CDT Gender Identity Male 08/15/2021 1:58 PM CDT Sexual Orientation Not on file 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 on file Not on file Not on file documented as of this encounter Plan of Treatment Not on file documented as of this encounter Visit Diagnoses Not on filedocumented in this encounter Additional Health Concerns Infection Onset Date Last Indicated Resolved Time COVID-19 Rule Out 01/19/2020 01/19/2020 01/20/2020 4:37 PM CDT COVID-19 Rule Out 08/18/2021 08/19/202108/1908/19/2021 7:54 AM CDT COVID-19 Rule Out 11/03/2021 11/03/2021 11/03/2021 5:18 PM CDT documented as of this encounter Care Teams Prevocational/Rehabilitation Counselor Relationship Specialty Start Date End Date Ramone Degroot MD [address] [place] [phone] PCP - General FAMILY PRACTICE 06/30/18 Tejinder Cabrera MD [address] [place] [address] CARDIOVASCULAR DISEASE 06/30/18 10/19/23 Alon Holland MD [facility] [place] [address] Neurology Psychiatry 07/07/18 10/19/23 Alon De Leon MD [address] [place] [address] Covering Provider CARDIOTHORACIC SURGERY 08/18/21 Jennifer Don NP [address] [place] [address] Referring Physician Nurse Practitioner [facility] 11/28/21 documented as of this encounter
--- OUTSIDE RECORDS SUMMARY | 2024-08-07 09:08 | XMS_ITS | Clinical Summary ---
Author Organization [facility] Address [address] [place] [address] Phone Care Team Providers Care Prosthetic Technician Name Role Phone Ramone Degroot MD Primary Care Provider Kailee Merino MD Unavailable Allergies Active Allergy Reactions Criticality Noted Date Comments Meloxicam Swelling Medium 04/01/2021 Leg edema Simvastatin Rash Medium 06/30/2018 Medications levothyroxine (SYNTHROID) 88 MCG Tablet Take 88 mcg by mouth daily. 08/26/2021 Active furosemide (LASIX) 40 MG Tablet Take 40 mg by mouth daily. Active glipiZIDE (GLUCOTROL XL) 5 MG TABLET SR 24 HR Take 5 mg by mouth. Active atorvastatin (LIPITOR) 80 MG Tablet Take 80 mg by mouth daily. Active Glucosamine 500 MG Capsule Take 500 mg by mouth daily. Active potassium chloride SA (KLORCON M) 20 MEQ Tablet Controlled Release Take 20 mEq by mouth daily. Active sertraline (ZOLOFT) 50 MG Tablet Take 50 mg by mouth daily. Active DULoxetine (CYMBALTA) [address] Particles Take 30 mg by mouth daily. 01/15/2020 Active tamsulosin (FLOMAX) 0.4 MG Capsule Take 0.4 mg by mouth. Active metoprolol tartrate (LOPRESSOR) 25 MG Tablet Take 12.5 mg by mouth. 01/12/2022 Active hydrOXYzine (VISTARIL) 25 MG Capsule Take 25 mg by mouth 3 times daily as needed. Active Magnesium-Potas sium 60-60 MG Capsule Take by mouth. Active TURMERIC CURCUMIN PO Take 400 mg by mouth. Active glucosamine-cho ndroitin 500-400 MG Capsule Take 1 Capsule by mouth 3 times daily. Active Coenzyme Q10 100 MG Capsule Take by mouth. Active folic acid (FOLVITE) 1 MG Tablet Take 1 Tablet by mouth daily. 30 Tablet 2 05/04/2024 Active Active Problems Problem Noted Date Diagnosed Date Elevated blood pressure reading 05/03/2024 Encounters Date Type Department Care Team Description 05/25/2024 Telephone [facility] [address] [phone] Kailee Merino MD 05/23/2024 1:15 PM [facility] [address] [phone] Kailee Merino MD Abnormal protein electrophoresis (Primary Dx); Iron deficiency; Folate deficiency; Anemia, unspecified type 05/23/2024 Travel from Last 3 Months Family History Relation Name Status Comments Brother Alive Child 1 Alive Child 2 Alive Father Mother Social History Tobacco Use Types Packs/Day Years Used Date Smoking Tobacco: Former Cigarettes Smokeless Tobacco: Never Alcohol Use Standard Drinks/Week Comments Not Currently 0 (1 standard drink = 0.6 oz pur e alcohol) Sex and Gender Information Value Date Recorded Sex Assigned at Not on file Legal Sex Male 11:15 PM CDT Gender Identity Not on file Sexual Orientation Not on file Last Filed Vital Signs Vital Sign Reading Time Taken Comments Blood Pressure 132/84 05/03/2024 1:46 PM [facility] Pulse 98 05/03/2024 1:46 PM [facility] Temperature 36.8 C (98.2 F) 05/03/2024 1:46 PM [facility]JERO Respiratory Rate 18 05/03/2024 1:46 PM [facility] Oxygen Saturation 97% 05/03/2024 1:46 PM [facility]ERO Inhaled Oxygen Concentration - - Weight 72 kg (158 lb 11.2 oz) 05/03/2024 1:46 PM [facility] Height 175.3 cm (5' 9 ) 05/03/2024 1:46 PM [facility] Body Mass Index 23.44 05/03/2024 1:46 PM [facility] Plan of Treatment Health Maintenance Due Date Last Done Comments TdaP Immunization 1945 Zoster Immunization (1 of 2) 11/27/1995 Respiratory Syncytial Virus (RSV) Immunization (Adult) (1 - 1-dose 75+ series) 2020 Influenza Immunization (#1) 01/23/202401/22, 02/09/2022, 02/14/2021, Additional history exists SARS-COV-2 Immunization ( season) 2024 05/05/2021, 07/16/2020, 06/25/2020 Hepatitis C Virus (HCV) Screening Completed 02/22/2024 Pneumococcal Immunization (50+ years) Completed 03/10/2024, 06/19/2020, 02/08/2018 Hepatitis B Immunization Aged Out No longer eligible based on patient's age to complete this topic Meningococcal Immunization (ACWY) Aged Out No longer eligible based on patient's age to complete this topic Rotavirus Immunization Aged Out No lo nger eligible based on patient's age to complete this topic Insurance MEDICARE [facility] Care Teams Prosthetic Technician Relationship Specialty Start Date End Date Ramone Degroot MD [address] [place] [address] PCP - General Family Medicine 04/25/24 Kailee Merino MD [address] [place] [address] Consulting Physician Oncology 04/25/24
[2024-08-07 09:28] LABS: Basophils Absolute Auto 0.09 K/mm3 (0.00-0.10); Basophils Percent Auto 0.8 % (0.0-1.0); Eosinophils Absolute Auto 0.16 K/mm3 (0.02-0.50); Eosinophils Percent Auto 1.4 % (1.0-6.0); Hematocrit 36.2 % (37.0-46.0); Hemoglobin 9.5 g/dL (12.4-15.3); Immature Granulocyte Absolute 0.11 K/mm3 (0.00-0.00); Immature Granulocyte Percent A 0.9 % (0.0-0.0); Lymphocytes Absolute Auto 1.08 K/mm3 (1.10-4.50); Lymphocytes Percent Auto 9.2 % (18.0-42.0); Mean Corpuscular HGB Conc 26.2 g/dL (32-36); Mean Corpuscular Hemoglobin 24.2 pg (27.0-31.0); Mean Corpuscular Volume 92.1 fL (78.0-102.0); Mean Platelet Volume 9.9 fl (8.7-11.0); Monocytes Absolute Auto 1.39 K/mm3 (0.10-0.90); Monocytes Percent Auto 11.9 % (2.0-11.0); Neutrophils Absolute Auto 8.88 K/mm3 (1.70-7.20); Neutrophils Percent Auto 75.8 % (50.0-70.0); Nucleated Red Blood Cells Absolute Auto 0.02 K/mm3 (0.00-0.00); Nucleated Red Blood Cells Perc 0.2 % (0-0.0); Platelet Count Result 391 K/mm3 (150-420); Red Blood Count 3.93 M/mm3 (4.70-6.10); Red Cell Distribution Width 16.7 % (11.6-14.4); White Blood Count 11.7 K/mm3 (4.8-10.8)
[2024-08-07 09:32] LABS: Add Urine Microscopic? NO; Appearance Urine Clear (Clear); Bilirubin Urine Negative (Negative); Blood Urine Trace-intact (Negative); Color Urine Yellow (Yellow); Glucose Urine UA Negative (Negative); Ketones Urine Negative (Negative); Leukocyte Esterase Ur Negative LEU/UL (Negative); Nitrate Urine Negative (Negative); Protein Urine Negative (Negative); Specific Grav Ur 1.025 (1.010-1.020); Urobilinogen Urine 0.2 mg/dL (0.2-1.0); pH Urine 5.5 (5.0-8.0)
--- NOTE | 2024-08-07 09:34 | PC.NURSE ---
family is at bedside. pt is in radiology. attempting to contact pmd for allergies, is unaware- reporting he has 2 that she cannot remember, pt's pharmacy had none listed. will continue to monitor.
[2024-08-07 09:46] LABS: INR 1.2; Partial Thromboplastin Time 32.2 Sec (23.9-30.70)
[2024-08-07 09:51] LABS: Alanine Aminotransferase 88 U/L (16-63); Albumin Level 3.5 g/dL (3.4-5.0); Alkaline Phosphatase 222 U/L (46-116); Anion Gap 3 mmol/L (4-12); Aspartate Amino Transferase 128 U/L (15-37); Bilirubin,Total 0.7 mg/dL (0.00-1.00); Blood Urea Nitrogen 33 mg/dL (7-18); Calcium 8.6 mg/dL (8.5-10.1); Carbon Dioxide 36 mmol/L (21-32); Chloride 104 mmol/L (98-108); Estimated Glomerular Filt Rate 25; Glucose 63 mg/dL (70-99); Osmolality Calculated 301 mOsm/kg (285-295); Potassium 5.3 mmol/L (3.5-5.1); Sodium 143 mmol/L (136-145); Total Protein 9.5 g/dL (6.4-8.2)
[2024-08-07 09:53] LABS: Troponin I 106.4 ng/L (0.00-60.4)
[2024-08-07 09:54] LABS: Lactic Acid Reflex 1.8 mmol/L (0.4-2.0)
[2024-08-07 10:01] LABS: Amphetamine Screen Urine Negative (Negative); Barbiturate Screen Urine Negative (Negative); Benzodiazepines Screen Urine Negative (Negative); Cannabinoid Screen Urine Negative (Negative); Cocaine Screen Urine Negative (Negative); Methadone Screen Urine Negative (Negative); Opiate Screen Urine Negative (Negative); Phencyclidine Screen Urine Negative (Negative)
[2024-08-07 10:04] LABS: Base Excess ABG 1.8 mmol/L (0-2); HCO3 ABG 38.4 mmol/L (23-29); Oxygen Saturation ABG 99.5 % (95-97); Oxyhemoglobin 98.2 % (94-100); PO2 ABG 289.7 mmHg (75-85)
[2024-08-07] MEDS: DEXTROSE 50% 25 GM/50 ML SYRINGE IV PUSH (10:04)
[2024-08-07 10:06] LABS: Modified Allen's Test Pass; Site Drawn LEFT RADIAL; pH ABG 6.91 (7.35-7.45)
[2024-08-07 10:07] LABS: Device NON-REBREATHER MASK
[2024-08-07 10:08] LABS: Ethanol < 3 mg/dL (0-6)
[2024-08-07] MEDS: levoFLOXacin 750 MG/D5W 150 ML 750 MG/150 ML BAG 100 MG IVPB (10:08)
[2024-08-07] MEDS: VANCOMYCIN 1,000 MG/NS 250 ML 1,000 MG/250 ML BAG 250 MG IVPB (10:12)
[2024-08-07] MEDS: RAPID SEQUENCE INTUBATION KIT 1 EACH (10:18)
[2024-08-07] MEDS: MIDAZOLAM HCL (*CRX) 5 MG/ML VIAL 4 MG IV PUSH (10:19)
--- NOTE | 2024-08-07 10:25 | PC.NURSE ---
PT WAS INTUBATED WITHOUT DIFFICULTY. 7.5 ETTUBE 25 @ LIP PER DR LEOS. FAMILY IS AWARE OF PLAN OF CARE AND WERE AGREEABLE TO INTUBATION.
[2024-08-07] MEDS: MIDAZOLAM 100MG/NS 100ML(*CRX) 100 MG/100 ML BAG IV CONT (11:08)
--- NOTE | 2024-08-07 11:18 | PC.NURSE ---
PT IS LYING ON STRETCHER, EYES OPEN WITH IV MEDICATIONS INFUSING ORDERED, FAMILY AT BEDSIDE. VERSED DRIP ADJUSTED. PT IS TOLERATING VENTILATOR WITHOUT DISTRESS. ISABELA ERWIN IS REQUESTING A REPEAT ABG WITH RESULTS. WILL CONTINUE TO MONITOR.
[2024-08-07 11:22] LABS: Triglycerides 76 mg/dL (0-150)
[2024-08-07 11:27] LABS: HCO3 ABG 24.9 mmol/L (23-29); Modified Allen's Test Pass; Oxygen Saturation ABG 99.7 % (95-97); Oxyhemoglobin 99.1 % (94-100); PCO2 ABG 47.3 mmHg (35-45); PO2 ABG 487.6 mmHg (75-85); Site Drawn LEFT RADIAL; pH ABG 7.34 (7.35-7.45)
[2024-08-07 11:28] LABS: Arterial Blood Gas Ventilator rate 24 /MIN; Device VENTILATOR
[2024-08-07 11:29] LABS: Arterial Blood Gas PEEP 5 cmH2O; Arterial Blood Gas Tidal Volume 450 ml
[2024-08-07 11:45] LABS: Glucose Point of Care 94 mg/dl (65-105)
--- NOTE | 2024-08-07 12:05 | PC.NURSE ---
PT'S COLOR HAS IMPROVED, HE IS RELAXED ON STRETCHER WITH VENTILATOR IN PLACE. FAMILY AT BEDSIDE. PT IS TO BE TRANSFERRED TO [facility] SO 3602. PT HAS HAD HANDS CLENCHED SINCE ARRIVAL, RN IS ABLE TO OPEN THEM, HE DOES SEEM TO CLENCH THEM TOGETHER. THE LONGER HE IS ON THE VENTILATOR THE LOOSER HIS APPLICATION CONSULTANT BECOME. TORRES CATHETER IS DRAINING WITHOUT DIFFICULTY. PT IS TO BE TRANSFERRED WITH VERSED DRIP INFUSING. BELONGINGS LIST WAS COMPLETED AND BELONGINGS WERE SENT HOME WITH FAMILY. EMS HAS ARRIVED FOR TRANSPORT.
[2024-08-07 12:06] LABS: Influenza A QL RT-PCR Negative (Negative); Influenza B QL RT-PCR Negative (Negative); RSV RNA, RT-PCR Negative (Negative); SARS-CoV-2 RNA PCR Negative (Negative)
--- NOTE | 2024-08-08 12:03 | PC.NURSE ---
PRELIMINARY BLOOD CULTURE RESULTS X2: NO GROWTH TO DATE
== END 2024-08-07 12:48 | disposition short-term general hospital (02) ==
PROVIDERS: Emergency Provider Emergency Medicine; PCP Family Medicine
DX: N28.9 Disorder of kidney and ureter, unspecified (principal); R94.5 Abnormal results of liver function studies; R79.89 Other specified abnormal findings of blood chemistry; J96.02 Acute respiratory failure with hypercapnia; J96.01 Acute respiratory failure with hypoxia; E11.9 Type 2 diabetes mellitus without complications; E78.5 Hyperlipidemia, unspecified; I11.0 Hypertensive heart disease with heart failure; I50.9 Heart failure, unspecified; I48.91 Unspecified atrial fibrillation; W20.8XXA Other cause of strike by thrown, projected or falling object, initial encounter; Z20.822 Contact with and (suspected) exposure to COVID-19
CPT/HCPCS: 31500; 36415; 36600; 70450; 71045; 80053; 80307; 81003; 82077; 82805; 82948; 83605; 84478; 84484; 85025; 85610; 85730; 86140; 87040; 87637; 93005; 96361; 96365; 96367; 99291; J0330; J1956; J2250; J3370; J7030